=== PATIENT | female | born 1995 | race Caucasian/White ===

== ENCOUNTER 2017-06-23 22:10 | Emergency (ER) | payer BC ==
[2017-06-24 00:30] VITALS: BP 123/71
== END 2017-06-24 00:15 | disposition home or self-care (01) ==
LOC: ED 22:10
DX: G43.909 Migraine, unspecified, not intractable, without status migrainosus (principal); Z53.21 Procedure and treatment not carried out due to patient leaving prior to being seen by health care provider
CPT/HCPCS: 99283